=== PATIENT | female | born 1980 | race Two or more races ===

== ENCOUNTER 2022-02-16 16:55 | Emergency (ER) | payer BC ==
[2022-02-16 19:51] LABS: CORONAVIRUS COVID-19 NAA NEGATIVE (NEGATIVE); INFLUENZA A NAA POSITIVE (NEGATIVE); INFLUENZA B NAA NEGATIVE (NEGATIVE)
[2022-02-16] MEDS ORDERED: Oseltamivir 75 MG Cap PO ONE (19:54)
== END 2022-02-16 20:21 | disposition home or self-care (01) ==
LOC: MW.ED 16:55
DX: J10.1 Influenza due to other identified influenza virus with other respiratory manifestations (principal); Z20.822 Contact with and (suspected) exposure to COVID-19
CPT/HCPCS: 0240U; 99283; A9270

== ENCOUNTER 2022-02-24 15:01 | Inpatient (IN) | payer BC ==
[2022-02-24] MEDS ORDERED: Ondansetron 4 MG/2 ML SDV IVPUSH PRN ×3 (16:08→17:34)
[2022-02-24] MEDS ORDERED: Albuterol 0.083% 2.5 MG/3 ML Neb Soln NEB PRN (16:08)
[2022-02-24] MEDS ORDERED: Acetaminophen/oxyCODONE 325-5 MG Tab PO PRN ×2 (16:08→17:34)
[2022-02-24] MEDS ORDERED: HYDROmorphone 2 MG/ML Syringe IVPUSH PRN (16:08)
[2022-02-24] MEDS ORDERED: Naloxone 0.4 MG/ML SDV IVPUSH PRN (16:08)
[2022-02-24] MEDS ORDERED: fentaNYL 100 MCG/2 ML SDV IVPUSH PRN ×2 (16:08)
[2022-02-24] MEDS ORDERED: Metoclopramide 10 MG/2 ML SDV IVPUSH PRN (16:08)
[2022-02-24] MEDS ORDERED: ePHEDrine 50 MG/ML SDV IVPUSH PRN (16:08)
[2022-02-24] MEDS ORDERED: Morphine 2 MG/ML SYRINGE IVPUSH PRN (16:08)
[2022-02-24] MEDS ORDERED: diphenhydrAMINE 50 MG/ML SDV IVPUSH PRN ×2 (16:08→17:34)
[2022-02-24] MEDS ORDERED: Phenylephrine HCl In 0.9% NaCl 1 MG/10 ML Vial IVPUSH SCH (16:15)
[2022-02-24] MEDS ORDERED: Bisacodyl 10 MG Supp RECTAL PRN (17:34)
[2022-02-24] MEDS ORDERED: Oxytocin 10 Units/1 ML SDV IM PRN (17:34)
[2022-02-24] MEDS ORDERED: Lanolin 100% Cream 7 GM Tube TOP PRN (17:34)
[2022-02-24] MEDS ORDERED: Methylergonovine 0.2 MG/1 ML Amp IM PRN (17:34)
[2022-02-24] MEDS ORDERED: Misoprostol 200 MCG Tab RECTAL PRN (17:34)
[2022-02-24] MEDS ORDERED: Ibuprofen 800 MG Tab PO PRN (17:34)
[2022-02-24] MEDS ORDERED: Tranexamic Acid 1,000 MG in Sodium Chloride 0.9% 100 ML IV PRN (17:34)
[2022-02-24] MEDS ORDERED: Simethicone 80 MG Tab.Chew PO SCH (18:00)
[2022-02-24] MEDS: Lactated Ringers 1,000 ML IV SCH (20:11)
[2022-02-24] MEDS ORDERED: Docusate Sodium 100 MG Cap PO SCH (21:00)
[2022-02-25] MEDS: Lactated Ringers 1,000 ML IV SCH (03:19)
[2022-02-25] MEDS ORDERED: Ketorolac 30 MG/ML SDV IVPUSH PRN (10:25)
[2022-02-25] MEDS: Acetaminophen/oxyCODONE 325-5 MG Tab PO PRN ×2 (13:32→18:38)
[2022-02-26] MEDS: Acetaminophen/oxyCODONE 325-5 MG Tab PO PRN (00:22)
== END 2022-02-26 11:30 | disposition home or self-care (01) | DRG 540 ==
LOC: MW.OB 15:01
PROVIDERS: ADMIT Obstetrics & Gynecology; ATTEND Obstetrics & Gynecology
PROC: 10D00Z1 Extraction of Products of Conception, Low, Open Approach (ICD-10-PCS; principal; 2022-02-24)
DX: O34.211 Maternal care for low transverse scar from previous cesarean delivery (principal); Z3A.37 37 weeks gestation of pregnancy; Z37.0 Single live birth; O41.03X0 Oligohydramnios, third trimester, not applicable or unspecified; O24.424 Gestational diabetes mellitus in childbirth, insulin controlled
CPT/HCPCS: 36415; 59025; 82803; 82947; 85014; 85018; A9270-GY; J1200; J7120